=== PATIENT | female | born 1960 | race Hispanic/Latino ===

== ENCOUNTER 2017-02-11 20:05 | Emergency (ER) | payer OTHER ==
[2017-02-11] MEDS ORDERED: NORMAL SALINE 1,000 ML IV ONE (21:03)
[2017-02-11 21:15] LABS: Urine Bilirubin Negative (NEGATIVE); Urine Blood Negative /ul (NEGATIVE); Urine Ketone Negative (NEGATIVE); Urine Nitrite Negative (NEGATIVE); Urine Protein Negative (NEGATIVE); Urine Urobilinogen Normal (NORMAL)
[2017-02-11 21:20] LABS: Hematocrit 35.1 % (37.0-47.0); Hemoglobin 11.8 gm/dL (12.5-16.0); Mean Cell Volume 87.5 fl (78-100); Mean Corpuscular Hemoglobin 29.4 pg (27-31); Mean Corpuscular Hgb Conc 33.6 g/dl (32-36); Mean Platelet Volume 9.1 fl (6.0-9.5); Neutrophil # 8.8 K/mm3 (1.3-6.0); Neutrophil % 78.7 % (42-75.0); Platelet Count 255 K/mm3 (150-450); Red Blood Count 4.01 M/mm3 (4.2-5.4); Red Cell Distribution Width 12.4 % (11.5-14.0); White Blood Count 11.2 K/mm3 (4.0-10.5)
--- NOTE | 2017-02-11 21:20 | ERNOTE ---
Syncope ER HPI Date of Service: 02/11/17 Stated Complaint: SYNCOPE Time Seen by Provider: 02/11/17 20:57 Source: patient, family Immunizations: IMMUNIZATION HX Immunizations Up to Date No History of Influenza Vaccine No Allergies/Adverse Reactions: Allergies No Known Drug Allergies Allergy (Verified 02/11/17 20:14) Home Medications: HOME MEDICATIONS NK [No Home Medication] 02/11/17 [Last Taken Unknown] - History of Present Illness Narrative: This is a 56-year-old female who comes to the emergency department following a single episode of syncope. The patient did have an episode 5 years ago when she was exercising while at home. The patient says that she was out dancing this evening when she started to feel like she "could not get enough air in". The patient says that she then moved towards the door of the kitchen and sat down. She started to feel more dizzy so she laid down. Her who is with her says that she actually passed out. He says that she did not have any seizure activity. She immediately regained consciousness and since then has been feeling completely normal. She did not have any chest pain. No nausea or vomiting no urinary symptoms no diarrhea she has had no swelling in her legs. She did have a recent car trip today up from [place] Review of Systems - Review of Systems Constitutional: Present: malaise, other - patient has felt generally slightly decreased energy today with frequent yawning EYE: Present: no symptoms reported ENT: Present: no symptoms reported Respiratory: Present: other Cardiology: Present: no symptoms reported Gastrointestinal/Abdominal: Present: no symptoms reported Genitourinary: Present: no symptoms reported - felt like she could not get enough air in Musculoskeletal: Present: no symptoms reported Skin: Present: no symptoms reported Neurological: Present: no symptoms reported Endocrine: Present: no symptoms reported Hematologic/Lymphatic: Present: no symptoms reported Psych: Present: no symptoms reported All Other Systems: All systems neg except as marked - Patient's Past Medical History Patient History - Medical: No pertinent hx Patient History - Cardiac/Respiratory: No pertinent hx Patient History - Cancer: No Hx of Cancer Patient History - Surgical Procedures: No surgical history Patient History - Other: None - Social History Living Situations: home Psych History: No pertinent hx Smoking Status: Never smoker Alcohol Use: rarely Drug Use: none - Immunizations Immunizations Up to Date: No History of Influenza Vaccine: No Physical Exam - Physical Exam General Appearance: Present: wd/wn, alert, no apparent distress, other - pleasant cooperative no distress Head Exam: Present: normal inspection, no evidence of injury Eye Exam: Normal inspection: bilateral, PERRL: bilateral, EOMI: bilateral Ears, Nose, Throat: Present: normal ENT inspection, normal pharynx Neck: Present: normal inspection, nontender Respiratory: Present: no respiratory distress, normal breath sounds, no accessory muscle use, chest nontender Cardiovascular/Chest: Present: regular rate, rhythm, no murmur, normal peripheral pulses Gastrointestinal/Abdominal: Present: normal bowel sounds, nontender, nondistended, soft Extremity Exam: Present: normal inspection, non-tender, normal range of motion Neurological Exam: Present: alert, oriented, normal mood/affect, no motor/ sensory deficits Skin Exam: Present: normal color, warm/dry Lymphatic Exam: Present: no adenopathy ED Progress - Results and Orders Patient's Lab Results:: I have reviewed the patient's lab results. - Vital Signs Patient's Vital Signs:: I have reviewed the patient's vital signs. Vital Signs: Vital Signs 02/11/17 02/11/17 02/11/17 20:06 20:23 20:30 Temperature 37.1 C Pulse Rate 62 57 L 61 Respiratory 14 15 Rate Blood Pressure 100/34 97/58 O2 Sat by Pulse 97 98 Oximetry 02/11/17 21:04 Temperature Pulse Rate 64 Respiratory 14 Rate Blood Pressure 105/62 O2 Sat by Pulse 98 Oximetry - EKG EKG: other - sinus bradycardia rate of 56 and normal axis normal intervals no ST segment changes to indicate acute ischemia. Borderline ST depression in 23 and aVF - Progress/Reassessment Chief Complaint: Syncopal Episode Departure Clinical Impression: Syncope - Departure Disposition: Home self-care Condition: Good Instructions: Near-Syncope, [id number], Syncope, [id number] Additional Instructions: As we discussed he did have a syncopal episode. This is passing out usually after feeling dizzy. We checked multiple labs and studies here and none of them are identified a definite cause for your symptoms. This is very common in the emergency department. Most people who have this condition do not have any readily identifiable cause here in the ER. Next This does not mean that there is nothing wrong. He simply do not see a reason to admit her to the hospital to have more testing done right now. If he continued to have episodes such as this to her family doctor will need to perform a tilt table test. Call your family doctor, tell them you were seen in the ER, and set up a follow- up appointment. Certainly she develop any new concerning symptoms I want you to return to the ER. Sure you're getting plenty drink
[2017-02-11 21:34] LABS: Albumin * 3.2 gm/dl (3.4-5.0); Anion Gap 10.3 mmol/L (6.8-13.8); BUN/Creatinine Ratio 19.2 (9.0-21.6); Bilirubin, Total 0.8 mg/dL (0.0-1.1); Ca. Corrected For Albumin 8.9 mg/dL (8.4-10.2); Calcium * 8.6 mg/dL (7.9-10.9); Carbon Dioxide 30.4 mmol/L (24-32.6); Potassium 3.7 mmol/L (3.4-4.6); Total Protein 6.6 gm/dL (6.2-8.2); Urine Appearance Slightly Cloudy; Urine Bacteria 4+; Urine Coarse Granular Cast TRACE /LPF; Urine Color Yellow; Urine Fine Granular Cast 0-5 /LPF; Urine RBC None Seen /hpf (0-5); Urine Renal Epithelial Cell Few - 1+ /hpf; Urine WBC 0-5 /hpf (0-5); Urine Yeast TRACE
[2017-02-11 22:17] VITALS: BP 107/59
== END 2017-02-11 22:20 | disposition home or self-care (01) ==
LOC: ER 20:05
DX: R55 Syncope and collapse (principal)